=== PATIENT | female | born 1945 | race African-American/Black ===

== ENCOUNTER 2021-01-04 11:16 | Outpatient (CLI) | payer MEDICARE | END 2021-01-04 11:17 | disposition home or self-care (01) | LOC: CSHMAMMO 11:16 | PROVIDERS: ATTEND Internal Medicine | DX: Z12.31 Encounter for screening mammogram for malignant neoplasm of breast (principal) | CPT/HCPCS: 77063; 77067 ==

== ENCOUNTER 2022-01-18 12:48 | Outpatient (CLI) | payer MEDICARE | END 2022-01-18 12:49 | disposition home or self-care (01) | LOC: CSHMAMMO 12:48 | PROVIDERS: ATTEND Internal Medicine | DX: Z12.31 Encounter for screening mammogram for malignant neoplasm of breast (principal) | CPT/HCPCS: 77063; 77067 ==

== ENCOUNTER 2024-05-13 11:03 | Outpatient (CLI) | payer MEDICARE | END 2024-05-13 11:04 | disposition home or self-care (01) | LOC: CSHMAMMO 11:03 | PROVIDERS: ATTEND Internal Medicine | DX: Z12.31 Encounter for screening mammogram for malignant neoplasm of breast (principal) | CPT/HCPCS: 77063; 77067 ==

== ENCOUNTER 2025-05-28 10:16 | Outpatient (CLI) | payer MEDICARE | END 2025-05-28 10:17 | disposition home or self-care (01) | LOC: CSHMAMMO 10:16 | DX: Z12.31 Encounter for screening mammogram for malignant neoplasm of breast (principal) | CPT/HCPCS: 77063; 77067 ==